=== PATIENT | female | born 1990 | race Hispanic/Latino ===

== ENCOUNTER 2021-07-18 05:12 | Emergency (ER) | payer OTHER ==
--- OUTSIDE RECORDS SUMMARY | 2021-07-18 05:15 | XMS REPORT | Continuity of Care Document ---
:1990 Author Organization [facility] t Address [address] [place] [address] Care Team Providers Name Role Phone Domenico JOSE ANGEL Primary Care Physician Marsha Attending Clinician Unavailable Juan Carlos FRANCE Attending Clinician Unavailable RAMANDEEP LOYOLA Attending Clinician Unavailable Juan Carlos France MD Attending Clinician RODRIGO Attending Clinician Unavailable Doctor Unassigned, Name Attending Clinician Unavailable Salma Freeman Attending Clinician Marsha Admitting Clinician Unavailable Payers Payer Name Policy Type Policy Number Effective Date Expiration Date S ource Problems Condition Condition Condition Status Onset Resolution Last Treating Co mments Source Name Details Category Date Date Treatment Clinician Date Obesity Obesity Disease Active Univers (BMI (BMI 8-15 ity of 30-39.9) 30-39.9) 00:00: [place] 00 Medical Branch Allergies, Adverse Reactions, Alerts Allergy Allergy Status Severity Reaction(s) Onset Inactive Treating Comm ents Source Name Type Date Date Clinician No Known DA Active U [facility] [place] No Known DA Active U NONE NOTED [facility] [place] Lactase Propensi Active Unknown - Univ ers ty to See comments 8-14 ity of adverse 00:00: [place] reaction 00 Medical s Branch LACTASE DRUG Active Unknown-Cmnt Uni vers INGREDI 8-14 ity of 00:00: [place] 00 Medical Branch Social History Social Habit Start Date Stop Date Quantity Comments Source ASSERTION 2020-08-10 [facility] 00:00:00 Medical Branch Exposure to Not sure [facility] SARS-CoV-2 (event) Medica l Branch Tobacco use and 2021-06-15 2021-06-15 Never used [facility] exposure 00:00:00 00:00:00 [facility] Sex Assigned At [birth year] [facility] 00:00:00 00:00:00 Medical Branch Smoking Status Start Date Stop Date Source Never smoker [facility] Medications Ordered Filled Start Stop Current Ordering Indication Dosage Frequency Signature Comments Components Source Medication Medication Date Date Medication? Clinician (SIG) Name Name [facility] 2020-08 Yes Take by Un reginald rol, 08-15 mouth. ity of vitamin D2, 13:08: [place] (VITAMIN D 35 Medical ORAL) Branch vitamin 2020-08 Yes 50ug Take 50 Univers B-12 1-02 mcg by ity of (VITAMIN 13:08: mouth [place] B-12) 100 35 daily. Medical mcg tablet Branch VITAMIN B 2020-08 Yes Take by [facility] ers COMPLEX-100 08-15 mouth. ity of ORAL 13:08: [address] iron,carb/v 2020-08 Yes Take by Un reginald it C/vit 02 mouth. ity of B12/folic 13:08: [place] (IRON 100 35 Medical PLUS ORAL) [facility]-08 Yes Take by Un reginald rol, 08-15 mouth. ity of vitamin D2, 13:08: [place] (VITAMIN D 35 Medical ORAL) Branch vitamin 2020-08 Yes 50ug Take 50 Univers B-12 1-02 mcg by ity of (VITAMIN 13:08: mouth [place] B-12) 100 35 daily. Medical mcg tablet Branch VITAMIN B 2020-08 Yes Take by [facility] ers COMPLEX-100 08-15 mouth. ity of ORAL 13:08: [address] iron,carb/v 2020-08 Yes Take by Un reginald it C/vit 02 mouth. ity of B12/folic 13:08: [place] (IRON 100 35 Medical PLUS ORAL) Branch ergocalcife 2020-08 Yes Take by Un reginald rol, 08-15 mouth. ity of vitamin D2, 13:08: [place] (VITAMIN D 35 Medical ORAL) Branch vitamin 2020-08 Yes 50ug Take 50 Univers B-12 1-02 mcg by ity of (VITAMIN 13:08: mouth [place] B-12) 100 35 daily. Medical mcg tablet Branch VITAMIN B 2020-08 Yes Take by Univ ers COMPLEX-100 08-15 mouth. ity of ORAL 13:08: [place] [address] Medical Branch iron,carb/v 2020-08 Yes Take by Un reginald it C/vit 08-15 mouth. ity of B12/folic 13:08: [place] (IRON 100 35 Medical PLUS ORAL) Branch ergocalcife 2020-08 Yes Take by Un reginald rol, 08-15 mouth. ity of vitamin D2, 13:08: [place] (VITAMIN D 35 Medical ORAL) Branch vitamin 2020-08 Yes 50ug Take 50 Univers B-12 1-02 mcg by ity of (VITAMIN 13:08: mouth [place] B-12) 100 35 daily. Medical mcg tablet Branch VITAMIN B 2020-08 Yes Take by Univ ers COMPLEX-100 08-15 mouth. ity of ORAL 13:08: [place] [address] Medical Branch iron,carb/v 2020-08 Yes Take by Un reginald it C/vit 08-15 mouth. ity of B12/folic 13:08: [place] (IRON 100 35 Medical PLUS ORAL) Branch ergocalcife 2020-08 Yes Take by Un reginald rol, 08-15 mouth. ity of vitamin D2, 13:08: [place] (VITAMIN D 35 Medical ORAL) Branch vitamin 2020-08 Yes 50ug Take 50 Univers B-12 1-02 mcg by ity of (VITAMIN 13:08: mouth [place] B-12) 100 35 daily. Medical mcg tablet Branch VITAMIN B 2020-08 Yes Take by Univ ers COMPLEX-100 08-15 mouth. ity of ORAL 13:08: [place] [address] Medical Branch iron,carb/v 2020-08 Yes Take by Un reginald it C/vit 08-15 mouth. ity of B12/folic 13:08: [place] (IRON 100 35 Medical PLUS ORAL) Branch ergocalcife 2020-08 Yes Take by Un reginald rol, 1-02 mouth. ity of vitamin D2, 13:08: [place] (VITAMIN D 35 Medical ORAL) Branch vitamin 2020-08 Yes 50ug Take 50 Univers B-12 1-02 mcg by ity of (VITAMIN 13:08: mouth [place] B-12) 100 35 daily. Medical mcg tablet Branch VITAMIN B 2020-08 Yes Take by [facility] ers COMPLEX-100 1-02 mouth. ity of ORAL 13:08: [place] 35 Medical Branch iron,carb/v 2020-08 Yes Take by Un reginald it C/vit -02 mouth. ity of B12/folic 13:08: [place] (IRON 100 35 Medical PLUS ORAL) Branch levothyroxi Yes [id number] 50ug Take 1 Univers ne 50 mcg 6-08 tablet by ity o f tablet 00:00: mouth [place] 00 every Medical morning. Branch levothyroxi Yes [id number] 50ug Take 1 Univers ne 50 mcg 6-08 tablet by ity o f tablet 00:00: mouth [place] 00 every Medical morning. Branch levothyroxi Yes [id number] 50ug Take 1 Univers ne 50 mcg 6-08 tablet by ity o f tablet 00:00: mouth [place] 00 every Medical morning. Branch levothyroxi Yes [id number] 50ug Take 1 Univers ne 50 mcg 6-08 tablet by ity o f tablet 00:00: mouth [place] 00 every Medical morning. Branch levothyroxi Yes [id number] 50ug Take 1 Univers ne 50 mcg 6-08 tablet by ity o f tablet 00:00: mouth [place] 00 every Medical morning. Branch levothyroxi Yes [id number] 50ug Take 1 Univers ne 50 mcg 6-08 tablet by ity o f tablet 00:00: mouth [place] 00 every Medical morning. Branch maalox:diph Yes [id number] garggle Univers enhydrAMINE 1-04 and spit ity of :lidocaine 00:00: out 5-10 [place] as 2 % viscous 00 ml every Medi dion 1:1:1 4-6 hrs as Branch needed for sore throat famotidine Yes [id number] 40mg Take 1 Univers 40 mg 1-04 tablet by ity of tablet 00:00: mouth [place] 00 daily. Medical Branch azelastine Yes [id number] 1{spray Use 1 Univers 137 mcg 1-04 } [place] ity of (0.1 %) 00:00: each [place] nasal spray 00 nostril 2 Med ical (two) Branch times daily. Use in each nostril as directed maalox:diph Yes [id number] gar[place] Univers enhydrAMINE 1-04 and spit ity of :lidocaine 00:00: out 5-10 [place] as 2 % viscous 00 ml every Medi dion 1:1:1 4-6 hrs as Branch needed for sore throat famotidine Yes [id number] 40mg Take 1 Univers 40 mg 1-04 tablet by ity of tablet 00:00: mouth [place] 00 daily. Medical Branch azelastine Yes [id number] 1{spray Use 1 Univers 137 mcg 1-04 } [place] ity of (0.1 %) 00:00: each [place] nasal spray 00 nostril 2 Med ical (two) Branch times daily. Use in each nostril as directed maalox:diph Yes [id number] gar[place] Univers enhydrAMINE 1-04 and spit ity of :lidocaine 00:00: out 5-10 [place] as 2 % viscous 00 ml every Medi dion 1:1:1 4-6 hrs as Branch needed for sore throat famotidine 2020- Yes [id number] 40mg Take 1 Univers 40 mg 1-04 tablet by ity of tablet 00:00: mouth [place] 00 daily. Medical Branch azelastine Yes [id number] 1{spray Use 1 Univers 137 mcg 1-04 } [place] ity of (0.1 %) 00:00: each [place] nasal spray 00 nostril 2 Med ical (two) Branch times daily. Use in each nostril as directed maalox:diph Yes [id number] gar[place] Univers enhydrAMINE 1-04 and spit ity of :lidocaine 00:00: out 5-10 [place] as 2 % viscous 00 ml every Medi dion 1:1:1 4-6 hrs as Branch needed for sore throat famotidine 2020-0 Yes [id number] 40mg Take 1 Univers 40 mg 1-04 tablet by ity of tablet 00:00: mouth [place] 00 daily. Medical Branch azelastine Yes [id number] 1{spray Use 1 Univers 137 mcg 1-04 } [place] ity of (0.1 %) 00:00: each [place] nasal spray 00 nostril 2 Med ical (two) Branch times daily. Use in each nostril as directed maalox:diph Yes [id number] gar[place] Univers enhydrAMINE 1-04 and spit ity of :lidocaine 00:00: out 5-10 [place] as 2 % viscous 00 ml every Medi dion 1:1:1 4-6 hrs as Branch needed for sore throat famotidine Yes [id number] 40mg Take 1 Univers 40 mg 1-04 tablet by ity of tablet 00:00: mouth [place] 00 daily. Medical Branch azelastine Yes [id number] 1{spray Use 1 Univers 137 mcg 1-04 } [place] in ity of (0.1 %) 00:00: each [place] nasal spray 00 nostril 2 Med ical (two) Branch times daily. Use in each nostril as directed maalox:diph Yes [id number] garggle Univers enhydrAMINE 1-04 and spit ity of :lidocaine 00:00: out 5-10 [place] as 2 % viscous 00 ml every Medi dion 1:1:1 4-6 hrs as Branch needed for sore throat famotidine Yes [id number] 40mg Take 1 Univers 40 mg 1-04 tablet by ity of tablet 00:00: mouth [place] 00 daily. Medical Branch azelastine Yes [id number] 1{spray Use 1 Univers 137 mcg 1-04 } [place] in ity of (0.1 %) 00:00: each [place] nasal spray 00 nostril 2 Med ical (two) Branch times daily. Use in each nostril as directed Vital Signs Vital Name Observation Time Observation Value Comments Source Systolic blood 2021-06-15 18:01:00 130 mm[Hg] Univer sity of pressure [place] [facility] Diastolic blood 2021-06-15 18:01:00 82 mm[Hg] [facility] Heart rate 2021-06-15 18:01:00 82 /min [facility] Body temperature 2021-06-15 18:01:00 36.94 Toshia Univ ersity of [place] [facility] Body height 2021-06-15 18:01:00 157.5 cm [facility] Body weight 2021-06-15 18:01:00 87.68 kg [facility] BMI 2021-06-15 18:01:00 35.36 kg/m2 [facility] Oxygen saturation in 2021-06-15 18:01:00 100 /min [facility] Arterial blood by [facility] Pulse oximetry Branch Procedures Procedure Date / Time Performed Performing Clinician Sourc e REFERRAL- 2021-07-12 06:01:00 Doctor Unassigned, No Jorge [facility] REQUEST/RESPONSE Name [facility] [id number] 2021-05-05 00:00:00 MONMA.05 [facility] Encounters Start End Encounter Admission Attending Care Care Encounter Source Date/Time Date/Time Type Type Clinicians Facility Department ID 2021-05-05 Inpatient BRIANNA Larson [facility] [id number] [facility] 12:30:00 [facility] [id number] [facility] 2021-05-03 Inpatient BRIANNA Larson [facility] [id number] [facility] 12:00:00 [facility] [id number] [facility] 2021-07-27 2021-07-27 [id number] Univers 14:00:00 14:00:00 NGOZI [id number] ity [facility] 2021-07-23 2021-07-23 Outpatient R MILLA [facility] [id number] Univers 13:30:00 13:30:00 DANNY [id number] ity [facility] 2021-07-15 2021-07-15 [facility] [id number] Univers 00:00:00 00:00:00 Ngozi SurIDx [id number] it y of CANCER 4.2.7.2.686 [facility] - [phone] Med ical MDA 419 Branch 2021-07-14 2021-07-14 Outpatient R [facility] [id number] Univers 20:00:00 20:00:00 [id number] ity [facility] 2021-07-14 2021-07-14 [facility] [id number] Univers 20:00:00 20:00:00 [facility] 2021-07-13 2021-07-13 Telephone [facility] [id number] Univers 00:00:00 00:00:00 Ngozi S [place] [id number] it y of [place] 4[place]2.686 [place] - [phone] Med ical MDA [address] [place] 2021-07-12 2021-07-12 Orders Doctor CAITLIN [id number] Univers 00:00:00 00:00:00 Only Unassigned, ATIF [id number] ity of [place] [facility] 4.2.7.2.686 [place] as [phone] [address] 2021-06-30 2021-06-30 Telephone [facility] [id number] Univers 00:00:00 00:00:00 [facility] [id number] ity [place]2.[place].2.686 [place] - [phone] Med ical MDA 408 Branch 2021-06-15 2021-06-15 Office [facility] [id number] Univers 12:49:29 13:19:29 Visit [place] [id number] ity of [place]2.[place].2.686 [place] - [phone] Med ical MDA 408 Branch 2021-05-05 2021-05-07 Inpatient BRIANNA Larson [facility] OB [id number] [facility] 10:24:00 13:12:00 Danna Woman' s [facility] Results Test Description Test Time Test Comments Results Result Comments Source HGB HCT 2021-05-06 06:02:00 Test Item Value Reference Range Interpretation Comme nts HEMOGLOBIN (test code = HGB) 7.9 g/dL 10.1-13.8 L HEMATOCRIT (test code = HCT) 24.7 % 32.5-41.8 L COVID 19 Asymptomatic IH [id number] 20:34:00 Test Item Value Reference Range Interpretation Comments COVID 19 NEGATIVE NEGATIVE This test has b een Asymptomatic IH AG authorize d only for the (test code = detection ofpro teins from COVNONPUIAG) SARS-CoV-2, not for any other viruses orpathogens. N egative results should be treated as presumptive andconfirmed wi th a molecular assay , if necessary for patientmanageme nt. Negative result s do not rule out COVID- 19 andshould not b e used as the sole basis for treatment orpat ient management deci sions, including infec tion controldecision s. Negative result s should be considered i n thecontext of a patient's recent exposure s, history and thepresence of clinical signs and symptoms consis tent withCOVID-19. T his test has not been FD A cleared or approved; th e test hasbeen authori juan by FDA under an Emerge ncy Use Authorization(E UA) for use by laborato eduardo certified under the CLIA thatmeet the re quirements to perform mode rate, high or waivedcomple xity tests. This gracia t is authorized for use at thePoint of Car e (POC), i.e., in patien t care settingsoperati ng under a CLIA Certificat e of Waiver, Certifi guerda ofCompliance, o r Certificate of Accreditation. This test is only authori zedamián for the duration of thedeclaration that circumstances e xist justifying theauthorizatio n of emergency use o f in vitro diagnostic test sfor detection and/o r diagnosis of CO VID-19 under [id number] 4(b)(1) of the Act, 21 U.S .C. 360bbb-3(b)(1), unless theauthorizatio n is terminated or r evoked sooner. AB HIV 1 19:00:00 Test Item Value Reference Range Interpretation Comments AB HIV 1 2 (test NONREACTIVE NONREACTIVE Done by S [facility] code = NUR62CL) 4th Gen HIV Ag/Ab Combo Screen AG HEPATITIS B [id number] 19:00:00 Test Item Value Reference Range Interpretation Comments AG HEPATITIS B SURFACE (test code NONREACTIVE NONREACTIVE = HBSAG) AB HEPATITIS C [id number] 19:00:00 Test Item Value Reference Range Interpretation Comments AB HEPATITIS C (test code = NONREACTIVE NONREACTIVE HCVAB) SIGNAL TO CUTOFF (test code = 0.04 <0.80 N CUTOFF) AB [id number] 19:00:00 Test Item Value Reference Range Interpretation Comments AB TREPONEMA (test code = TREPAB) NONREACTIVE NONREACTIVE URINALYSIS W/O [id number] 16:32:00 Test Item Value Reference Range Interpretation Comments UA GLUCOSE DIPSTICK (test code = NEGATIVE NEG DGLUU) UA KETONE DIPSTICK (test code = NEGATIVE NEG KETU) UA PROTEIN DIPSTICK (test code = NEGATIVE NEG PROU) IS NURSE PERFORMING TEST? NCBC W/AUTO [id number] 16:08:00 Test Item Value Reference Range Interpretation Comments WHITE BLOOD CELL (test code = WBC) 7.4 K/mm3 6.5-12.3 N RED BLOOD CELL (test code = RBC) 3.59 M/mm3 3.51-4.69 N HEMOGLOBIN (test code = HGB) 9.4 g/dL 10.1-13.8 L HEMATOCRIT (test code = HCT) 29.9 % 32.5-41.8 L MEAN CELL VOLUME (test code = MCV) 83.3 fL 84.6-96.6 L MEAN CELL HGB (test code = MCH) 26.2 pg 27.3-33.9 L MEAN CELL HGB CONCETRATION (test 31.4 gm/dL 32.0-34.2 L code = MCHC) RED CELL DISTRIBUTION WIDTH (test 14.7 % 12.2-16.3 N code = RDW) PLATELET COUNT (test code = PLT) 201 K/mm3 134-363 N MEAN PLATELET VOLUME (test code = 10.8 fL 9.2-12.7 N MPV) NEUTROPHIL % (test code = NT%) 59.2 % 57.9-77.3 N LYMPHOCYTE % (test code = LY%) 29.4 % 14.5-29.7 N MONOCYTE % (test code = MO%) 10.2 % 3.6-10.2 N EOSINOPHIL % (test code = EO%) 0.4 % 0.0-3.0 N BASOPHIL % (test code = BA%) 0.1 % 0.1-0.9 N NEUTROPHIL # (test code = NT#) 4.4 K/mm3 LYMPHOCYTE # (test code = LY#) 2.2 K/mm3 MONOCYTE # (test code = MO#) 0.8 K/mm3 EOSINOPHIL # (test code = EO#) 0.03 K/mm3 BASOPHIL # (test code = BA#) 0.0 K/mm3 RBC MORPHOLOGY REQUIRED (test code NORMAL NORMAL = RBCM) PLATELET MORPHOLOGY REQUIRED (test NORMAL NORMAL code = PLTMR)
--- NOTE | 2021-07-18 07:00 | ER ---
Nurse's Notes [facility] [place] [facility] Name: Fatmata Gomez Age: 31 yrs Sex: Female : 1990 Arrival Date: 07/18/2021 Time: 05:20 Bed DIS6 Private MD: Diagnosis: Dental caries, unspecified Presentation: 07/18 05:46 Chief complaint: Patient states: "So I have an infection on my tooth. I went to [facility] primary. She gave me antibiotics, and pain medications, but it has only gotten worse. I have a dental appointment on Monday, but I cannot deal with the pain. I was hoping to get a different antibiotic". Coronavirus screen: Vaccine status: Patient reports being unvaccinated. Ebola Screen: Patient negative for fever greater than or equal to 101.5 degrees Fahrenheit, and additional compatible Ebola Virus Disease symptoms Patient denies exposure to infectious person. Patient denies travel to an Ebola-affected area in the 21 days before illness onset. Initial Sepsis Screen: Does the patient meet any 2 criteria? HR > 90 bpm. Does the patient have a suspected source of infection? Yes: Other: infected tooth. Risk Assessment: Do you want to hurt yourself or someone else? Patient reports no desire to harm self or others. Onset of symptoms was July 12, 2021. 05:46 Method Of Arrival: Ambulatory tw5 05:46 Acuity: RHONDA 4 tw5 Triage Assessment: 06:03 General: Appears in no apparent distress. uncomfortable, Behavior is calm, cooperative, tw5 appropriate for age. Pain: Pain currently is 10 out of 10 on a pain scale. EENT: Reports pain in lower left second molar and lower left first molar. 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 - Social history:: Smoking status: Patient denies any tobacco usage or history of. Screenin:06 Abuse screen: Denies threats or abuse. Denies injuries from another. Nutritional tw5 screening: No deficits noted. Tuberculosis screening: No symptoms or risk factors identified. Fall Risk No fall in past 12 months (0 pts). Assessment: 06:07 Neuro: Level of Consciousness is awake, alert, obeys commands, Oriented to person, tw5 place, time, situation. Respiratory: Airway is patent Trachea midline Respiratory effort is even, unlabored. Derm: Skin is intact, is healthy with good turgor. Vital Signs: 05:46 Pulse 105; Resp 14; Temp 97.6; Pulse Ox 100% on R/A; Weight 84.82 kg; Height 5 ft. 2 tw5 in. (157.48 cm); Pain 10/10; 05:46 Body Mass Index 34.20 (84.82 kg, 157.48 cm) tw5 ED Course: 05:20 Patient arrived in ED. 05:46 Dorota Cast is Primary Nurse. tw5 05:54 Vidal Sylvester MD is Attending Physician. 7 06:03 Triage completed. tw5 06:03 Arm band placed on right wrist. tw5 06:07 Patient has correct armband on for positive identification. Bed in low position. Call tw5 light in reach. Side rails up X 1. Pulse ox on. NIBP on. Door closed. Moved to private room. Warm blanket given. Verbal reassurance given. 06:58 Abiodun Woods DDS is Referral Physician. 7 07:20 No provider procedures requiring assistance completed. Patient did not have IV access as6 during this emergency room visit. Administered Medications: 07:19 Drug: Tylenol 1000 mg Route: PO; as6 07:19 Follow up: Response: No adverse reaction as6 Outcome: 06:59 Discharge ordered by . 7 07:26 Discharged to home ambulatory. as6 07:26 Condition: stable 07:26 Discharge instructions given to patient, Instructed on discharge instructions, follow up and referral plans. medication usage, Demonstrated understanding of instructions, follow-up care, medications, Prescriptions given X 1. 07:28 Patient left the ED. as6 Signatures: Vidal Sylvester MD MD [facility] Hortencia Lopez Dorota Cast tw5 Barry Chapin RN RN as6 Corrections: (The following items were deleted from the chart) 06:05 06:03 Allergies: No Known Allergies; tw5 tw5
--- NOTE | 2021-07-18 07:00 | EDPHYS ---
Physician Documentation [facility] Name: Fatmata Gomez Age: 31 yrs Sex: Female : 1990 Arrival Date: 07/18/2021 Time: 05:20 Bed DIS6 Private MD: ED Physician Vidal Sylvester HPI: 07/18 06:54 This 31 yrs old Female presents to ER via Ambulatory with complaints of mh7 Toothache. 06:54 The patient presents with pain. The problem is located in the Left lower tooth. Onset: mh7 The symptoms/episode began/occurred 1 week(s) ago. Duration: The symptoms are continuous, and are unchanged since they started. Modifying factors: The symptoms are alleviated by nothing, the symptoms are aggravated by cold fluids. Associated signs and symptoms: Pertinent negatives: anorexia, chills, dysphagia, fever, inability to eat, nausea, redness in area, swelling, vomiting. Severity of symptoms: At their worst the symptoms were moderate, 3 day(s) ago, in the emergency department the symptoms are unchanged. States that she has appointment to see her dentist tomorrow.. 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 - Social history:: Smoking status: Patient denies any tobacco usage or history of. ROS: 06:54 Constitutional: Negative for fever, chills, and weight loss, Eyes: Negative for injury, mh7 pain, redness, and discharge, ENT: Negative for injury, pain, and discharge, Neck: Negative for injury, pain, and swelling, Cardiovascular: Negative for chest pain, palpitations, and edema, Respiratory: Negative for shortness of breath, cough, wheezing, and pleuritic chest pain, Abdomen/GI: Negative for abdominal pain, nausea, vomiting, diarrhea, and constipation, Back: Negative for injury and pain, : Negative for injury, bleeding, discharge, and swelling, MS/Extremity: Negative for injury and deformity, Skin: Negative for injury, rash, and discoloration, Neuro: Negative for headache, weakness, numbness, tingling, and seizure, Psych: Negative for depression, anxiety, suicide ideation, homicidal ideation, and hallucinations, Allergy/Immunology: Negative for hives, rash, and allergies, Endocrine: Negative for neck swelling, polydipsia, polyuria, polyphagia, and marked weight changes, Hematologic/Lymphatic: Negative for swollen nodes, abnormal bleeding, and unusual bruising. Exam: 06:54 Constitutional: This is a well developed, well nourished patient who is awake, alert, mh7 and in no acute distress. Head/Face: Normocephalic, atraumatic. 06:54 Skin: Warm, dry with normal turgor. Normal color with no rashes, no lesions, and no evidence of cellulitis. Neuro: Awake and alert, GCS 15, oriented to person, place, time, and situation. Cranial nerves II-XII grossly intact. Motor strength 5/5 in all extremities. Sensory grossly intact. Cerebellar exam normal. Normal gait. Psych: Awake, alert, with orientation to person, place and time. Behavior, mood, and affect are within normal limits. 06:54 ENT: External ear(s): are unremarkable, Nose: is normal, Mouth: is normal, Posterior pharynx: is normal, airway is patent, Dental exam: abscess, is not appreciated, cellulitis, is not appreciated, dental caries, that is moderate, specifically in the lower left first molar (#19), fractured teeth are noted, not appreciated, gum swelling, not appreciated, malocclusion, is not appreciated, missing teeth, not appreciated, pain, that is moderate, specifically in the lower left first molar (#19), Voice: is normal. Vital Signs: 05:46 Pulse 105; Resp 14; Temp 97.6; Pulse Ox 100% on R/A; Weight 84.82 kg; Height 5 ft. 2 tw5 in. (157.48 cm); Pain 10/10; 05:46 Body Mass Index 34.20 (84.82 kg, 157.48 cm) tw5 MDM: 06:54 Differential diagnosis: dental caries, gingivitis, dental abscess, pericoronitis, mh7 aphthous ulcers, acute necrotizing ulcerative gingivitis, gingivostomatitis. Data reviewed: vital signs, nurses notes. Counseling: I had a detailed discussion with the patient and/or guardian regarding: the historical points, exam findings, and any diagnostic results supporting the discharge/admit diagnosis, the need for outpatient follow up, a dentist. 06:59 Patient medically screened. [facility] Administered Medications: 07:19 Drug: Tylenol 1000 mg Route: PO; as6 07:19 Follow up: Response: No adverse reaction as6 Disposition Summary: 07/18/21 06:59 Discharge Ordered Location: Home [facility] Problem: an ongoing problem [facility] Symptoms: have improved [facility] Condition: Stable [facility] Diagnosis - Dental caries, unspecified [facility] Followup: [facility] - With: Private Physician - When: Tomorrow - Reason: Worsening of condition, Recheck today's complaints, Continuance of care, Re-evaluation by your physician Followup: [facility] - With: Abiodun Woods DDS - When: 1 - 2 days - Reason: Worsening of condition, Recheck today's complaints Discharge Instructions: - Discharge Summary Sheet [facility] - Dental Pain, [id number] [facility] - Dental Caries, Adult, [id number] [facility] Forms: - Medication Reconciliation Form [facility] - Thank You Letter [facility] - Antibiotic Education [facility] - Prescription Opioid Use [facility] Prescriptions: - Clindamycin HCl 300 mg Oral Capsule - take 1 capsule by ORAL route every 6 hours for 7 days; 28 capsule; Refills: 0, 7 Product Selection Permitted Signatures: Samanta Mcdaniels RN RN lp1 Vidal Sylvester MD MD 7 Dorota Cast 5 Barry Chapin RN RN as6 Corrections: (The following items were deleted from the chart) 06:05 06:03 Allergies: No Known Allergies; tw5 tw5
[2021-07-18] MEDS ORDERED: ACETAMINOPHEN 500 MG TAB ONE (07:18)
[2021-07-18] MEDS ORDERED: LIDOCAINE VISCOUS 2% SOLN 15 ML UDC ONE (07:19)
[2021-07-18 07:33] VITALS: TEMP 97.6; O2SAT 100
== END 2021-07-18 07:28 | disposition home or self-care (01) ==
LOC: ER 05:12
DX: K02.9 Dental caries, unspecified (principal)
CPT/HCPCS: 99283

== ENCOUNTER 2022-02-23 18:48 | Emergency (ER) | payer OTHER ==
--- NOTE | 2022-02-23 20:20 | RAD REPORT ---
EXAM DESCRIPTION: RAD - Chest Single View - 02/23/2022 7:57 pm CLINICAL HISTORY: CHEST PAIN COMPARISON: None TECHNIQUE: AP portable chest image was obtained 02/23/2022 7:57 pm . FINDINGS: Lung volumes are low accentuating the baseline interstitial pattern. No focal consolidatio n. Stranding is slightly more pronounced in the left base. This could be atelectasis or minimal infil trate. Heart and vasculature are normal. No measurable pleural effusion and no pneumothorax. No acute bony abnormality seen. No acute aortic findings suspected. IMPRESSION: Left base stranding is probably atelectasis on this low lung volume exam. Mild left base infiltrate cannot be excluded.
[2022-02-23 20:31] LABS: Absolute Lymphocytes (CBC) 0.3 K/uL (0.7-4.9); Hematocrit 39.5 % (36.0-45.0); Lymphocytes % 2.5 % (15.3-44.8); MCV 81.7 fL (80-100); MPV 7.9 fL (7.6-11.3); RBC Red Blood Cell Count 4.83 M/uL (3.86-4.86)
[2022-02-23 20:37] LABS: BUN Blood Urea Nitrogen 11 mg/dL (7-18); Bicarbonate 24 mmol/L (21-32); Glomerular Filtration Rate 103 ml/min (=/>90); Glucose Level 108 mg/dL (74-106); Potassium 4.4 mmol/L (3.5-5.1); Sodium Level 138 mmol/L (136-145)
[2022-02-23] MEDS ORDERED: ONDANSETRON 4 MG/2 ML VIAL ONE (20:43)
[2022-02-23] MEDS ORDERED: MORPHINE 4 MG/ML SYR ONE (20:43)
[2022-02-23 21:02] LABS: Troponin High Sensitivity < 3.0 pg/mL (<58.9)
[2022-02-23 21:45] LABS: Blood Morphology Comment NOT SEEN (NOT SEEN); Platelet Estimate ADEQ
--- NOTE | 2022-02-24 00:44 | ER ---
Nurse's Notes [facility] Name: Fatmata Gomez Age: 31 yrs Sex: Female : 1990 Arrival Date: 02/23/2022 Time: 18:49 Bed 8 Private MD: Diagnosis: SARS-associated coronavirus as the cause of diseases classified elsewhere;Chest pain, unspecified Presentation: 02/23 19:39 Chief complaint: Patient states: "I went and had a shot today at around 12 for pain in vc1 my back and about an hour later I started feeling burning in my chest and short of breath. I called the and they told me to try and lay down but it has been 3 hours and its not helping. I feel like my lung hurts or is flapping on the left when I bend down.". Coronavirus screen: Vaccine status: Patient reports being unvaccinated. At this time, the client does not indicate any symptoms associated with coronavirus-19. Ebola Screen: No symptoms or risks identified at this time. Initial Sepsis Screen: Does the patient meet any 2 criteria? HR > 90 bpm. No. Patient's initial sepsis screen is negative. Does the patient have a suspected source of infection? No. Patient's initial sepsis screen is negative. Risk Assessment: Do you want to hurt yourself or someone else? Patient reports no desire to harm self or others. Onset of symptoms was February 23, 2022 at 13:00. 19:39 Method Of Arrival: Wheelchair vc1 19:39 Acuity: RHONDA 3 vc1 Triage Assessment: 19:42 General: Appears in no apparent distress. uncomfortable, Behavior is cooperative, vc1 appropriate for age, anxious. Pain: Complains of pain in anterior aspect of left upper chest and mid-sternal area Pain currently is 10 out of 10 on a pain scale. Neuro: Level of Consciousness is awake, alert, obeys commands, Oriented to person, place, time, situation, Appropriate for age. Cardiovascular: Capillary refill < 3 seconds Patient's skin is warm and dry. Cardiovascular: Reports chest pain. Respiratory: Airway is patent Respiratory effort is even, unlabored, Respiratory pattern is regular, symmetrical. GI: No deficits noted. : No deficits noted. Derm: No signs and/or symptoms reported regarding the dermatologic system. Musculoskeletal: No deficits noted. 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 - Social history:: Smoking status: Patient denies any tobacco usage or history of. Screenin:45 Abuse screen: Denies threats or abuse. Nutritional screening: No deficits noted. vc1 Tuberculosis screening: No symptoms or risk factors identified. Fall Risk None identified. Assessment: 20:52 General: Appears in no apparent distress. comfortable, Behavior is calm, cooperative, ld1 appropriate for age. Pain: Complains of pain in chest Pain does not radiate. Pain currently is 8 out of 10 on a pain scale. Quality of pain is described as throbbing, Pain began gradually. Neuro: Level of Consciousness is awake, alert, obeys commands, Oriented to person, place, time, situation. Cardiovascular: Capillary refill < 3 seconds Patient's skin is warm and dry. Respiratory: Airway is patent Respiratory effort is even, unlabored. GI: Abdomen is flat, non-distended. : No signs and/or symptoms were reported regarding the genitourinary system. EENT: No signs and/or symptoms were reported regarding the EENT system. Derm: No signs and/or symptoms reported regarding the dermatologic system. Musculoskeletal: No signs and/or symptoms reported regarding the musculoskeletal system. 22:26 Reassessment: Patient appears in no apparent distress at this time. Patient and/or ld1 family updated on plan of care and expected duration. Pain level reassessed. Patient is alert, oriented x 3, equal unlabored respirations, skin warm/dry/pink. Vital Signs: 19:39 BP 152 / 101; Pulse 91; Resp 20; Temp 98.0; Pulse Ox 99% ; Weight 78.02 kg; Height 5 vc1 ft. 2 in. (157.48 cm); Pain 10/10; 20:52 BP 130 / 101; Pulse 99; Resp 18; Pulse Ox 100% on R/A; ld1 21:46 BP 146 / 96; Pulse 80; Resp 18; Pulse Ox 100% on R/A; ld1 22:26 BP 129 / 89; Pulse 95; Resp 18; Pulse Ox 100% on R/A; ld1 23:21 BP 110 / 91; Pulse 91; Resp 18; Pulse Ox 100% on R/A; ld1 02/24 00:57 BP 110 / 83; Pulse 86; Resp 18 S; Pulse Ox 100% on R/A; as6 02/23 19:39 Body Mass Index 31.46 (78.02 kg, 157.48 cm) vc1 ED Course: 02/23 18:49 Patient arrived in ED. as 19:08 Driss Mcneil DO is Attending Physician. ms3 19:42 Triage completed. vc1 19:44 Arm band placed on right wrist. vc1 19:45 Patient has correct armband on for positive identification. vc1 19:58 XRAY Chest (1 view) In Process Unspecified. EDMS 20:10 Inserted saline lock: 20 gauge in right antecubital area, using aseptic technique. zm Blood collected. 20:11 Basic Metabolic Panel Sent. zm 20:11 CBC with Diff Sent. zm 20:11 D-Dimer Sent. zm 20:11 Troponin HS Sent. zm 20:28 Barry Chapin, RN is Primary Nurse. as6 20:52 color television console monitor on. Pulse ox on. NIBP on. Door closed. Noise minimized. Warm blanket ld1 given. 20:52 No provider procedures requiring assistance completed. Patient maintains SpO2 ld1 saturation greater than 95% on room air. 02/24 00:43 Gaudencio Bailey DO is Referral Physician. ms3 00:56 IV discontinued, intact, bleeding controlled, No redness/swelling at site. Pressure as6 dressing applied. Administered Medications: 02/23 20:41 Drug: morphine 4 mg Route: IVP; Infused Over: 4 mins; Site: right antecubital; ld1 02/24 00:56 Follow up: Response: No adverse reaction as6 02/23 20:41 Drug: Zofran (Ondansetron) 4 mg Route: IVP; Site: right antecubital; ld1 02/24 00:56 Follow up: Response: No adverse reaction as6 Medication: 02/23 20:52 VIS not applicable for this client. ld1 Outcome: 02/24 00:43 Discharge ordered by . ms3 00:56 Discharged to home ambulatory. as6 00:56 Condition: stable 00:56 Discharge instructions given to patient, Instructed on discharge instructions, follow up and referral plans. medication usage, Demonstrated understanding of instructions, follow-up care, medications, Prescriptions given X 1. 00:57 Patient left the ED. as6 Signatures: Dispatcher [employer] EDMS Leann Gamez Marcus, DO DO ms3 Rachael Paredes RN RN ld1 Barry Chapin RN RN as6 Fany Lester RN RN vc1 Dejah Gamez Corrections: (The following items were deleted from the chart) 02/23 19:43 19:42 Allergies: Naproxen; vc1 vc1
--- NOTE | 2022-02-24 00:44 | EDPHYS ---
Physician Documentation [facility] Name: Fatmata Gomez Age: 31 yrs Sex: Female : 1990 Arrival Date: 02/23/2022 Time: 18:49 Bed 8 Private MD: ED Physician Driss Mcneil HPI: 02/23 19:57 This 31 yrs old Female presents to ER via Wheelchair with complaints of Chest ms3 Tightness, Irregular Pulse. 19:57 The patient or guardian reports chest pain that is located primarily in the left chest. ms3 The pain does not radiate. Associated signs and symptoms: Pertinent positives: shortness of breath. The chest pain is described as sharp. Duration: The patient or guardian reports a single episode, that is still ongoing. Modifying factors: The symptoms are alleviated by nothing. the symptoms are aggravated by nothing. Severity of pain: At its worst the pain was severe in the emergency department the pain is unchanged is a 10 / 10. 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 - Social history:: Smoking status: Patient denies any tobacco usage or history of. ROS: 19:57 Constitutional: Negative for fever, and chills. Neck: Negative for injury, pain, and ms3 swelling, Respiratory: Negative for shortness of breath, cough, wheezing, and pleuritic chest pain, Abdomen/GI: Negative for abdominal pain, nausea, vomiting, diarrhea, and constipation, MS/Extremity: Negative for injury and deformity, Skin: Negative for injury, rash, and discoloration, Neuro: Negative for headache, weakness, numbness, tingling. 19:57 Cardiovascular: Positive for chest pain. Exam: 19:57 Constitutional: This is a well developed, well nourished patient who is awake, alert, ms3 and in no acute distress. ENT: Nares patent. No nasal discharge, no septal abnormalities noted. Tympanic membranes are normal and external auditory canals are clear. Oropharynx with no redness, swelling, or masses, exudates, or evidence of obstruction, uvula midline. Mucous membranes moist. Neck: Trachea midline, no cervical lymphadenopathy. Supple, full range of motion without nuchal rigidity, or vertebral point tenderness. No Meningismus. Chest/axilla: Normal chest wall appearance and motion. Nontender with no deformity. Cardiovascular: Regular rate and rhythm with a normal S1 and S2. No gallops, murmurs, or rubs. Normal PMI, no JVD. No pulse deficits. Respiratory: Lungs have equal breath sounds bilaterally, clear to auscultation and percussion. No rales, rhonchi or wheezes noted. No increased work of breathing, no retractions or nasal flaring. Abdomen/GI: Soft, non-tender, with normal bowel sounds. No distension or tympany. No guarding or rebound. No evidence of tenderness throughout. Back: No spinal tenderness. No costovertebral tenderness. Full range of motion. Skin: Warm, dry with normal turgor. Normal color with no rashes, no lesions, and no evidence of cellulitis. MS/ Extremity: Pulses equal, no cyanosis. Neurovascular intact. Full, normal range of motion. Neuro: Awake and alert, GCS 15, oriented to person, place, time, and situation. Cranial nerves II-XII grossly intact. Motor strength 5/5 in all extremities. Sensory grossly intact. Cerebellar exam normal. Normal gait. Psych: Awake, alert, with orientation to person, place and time. Behavior, mood, and affect are within normal limits. 20:06 ECG was reviewed by the Attending Physician. ms3 Vital Signs: 19:39 BP 152 / 101; Pulse 91; Resp 20; Temp 98.0; Pulse Ox 99% ; Weight 78.02 kg; Height 5 vc1 ft. 2 in. (157.48 cm); Pain 10/10; 20:52 BP 130 / 101; Pulse 99; Resp 18; Pulse Ox 100% on R/A; ld1 21:46 BP 146 / 96; Pulse 80; Resp 18; Pulse Ox 100% on R/A; ld1 22:26 BP 129 / 89; Pulse 95; Resp 18; Pulse Ox 100% on R/A; ld1 23:21 BP 110 / 91; Pulse 91; Resp 18; Pulse Ox 100% on R/A; ld1 02/24 00:57 BP 110 / 83; Pulse 86; Resp 18 S; Pulse Ox 100% on R/A; as6 02/23 19:39 Body Mass Index 31.46 (78.02 kg, 157.48 cm) vc1 MDM: 02/23 19:57 Differential diagnosis: abnormal EKG, acute myocardial infarction, chest wall pain. ms3 20:04 Patient medically screened. ms02/23 19:24 Order name: Basic Metabolic Panel; Complete Time: 21:48 ms3 02/23 19:24 Order name: CBC with Diff; Complete Time: 21:48 02/23 19:24 Order name: D-Dimer; Complete Time: 21:48 02/23 19:24 Order name: Troponin HS; Complete Time: 21:48 02/23 20:34 Order name: Manual Differential; Complete Time: 21:48 EDMS 02/23 21:56 Order name: SARS-COV-2 RT PCR (Document "Date of Onset" if Symptomatic); Complete Time: ms3 00:46 02/23 19:24 Order name: XRAY Chest (1 view); Complete Time: 20:22 02/23 19:24 Order name: EKG; Complete Time: 19:25 02/23 19:24 Order name: Cardiac monitoring; Complete Time: 20:34 02/23 19:24 Order name: EKG - Nurse/Tech; Complete Time: 20:10 02/23 19:24 Order name: IV Saline Lock; Complete Time: 20:10 02/23 19:24 Order name: Labs collected and sent; Complete Time: 20:10 02/23 19:24 Order name: O2 Per Protocol; Complete Time: 20:34 02/23 19:24 Order name: O2 Sat Monitoring; Complete Time: 20:34 ms3 EC:06 Rate is 102 beats/min. Rhythm is regular. QRS [place] is Normal. Clinical impression: ms3 Sinus tachycardia. Interpreted by me. Reviewed by me. Administered Medications: 20:41 Drug: morphine 4 mg Route: IVP; Infused Over: 4 mins; Site: right antecubital; 02/24 00:56 Follow up: Response: No adverse reaction 02/23 20:41 Drug: Zofran (Ondansetron) 4 mg Route: IVP; Site: right antecubital; ld1 02/24 00:56 Follow up: Response: No adverse reaction as6 Disposition Summary: 02/24/22 00:43 Discharge Ordered Location: Home ms3 Condition: Stable ms3 Diagnosis - SARS-associated coronavirus as the cause of diseases classified elsewhere ms3 - Chest pain, unspecified ms3 Followup: ms3 - With: Gaudencio Bailey DO - When: 2 - 3 days - Reason: Recheck today's complaints Discharge Instructions: - Discharge Summary Sheet ms3 - Nonspecific Chest Pain, Adult ms3 - COVID-19 ms3 - 10 Things You Can Do to Manage Your COVID-19 Symptoms at Home - [facility] ms3 - Viral Illness, Adult ms3 Forms: - Medication Reconciliation Form ms3 - Thank You Letter ms3 - Antibiotic Education ms3 - Prescription Opioid Use ms3 Prescriptions: - Ibuprofen 600 mg Oral Tablet - take 1 tablet by ORAL route every 6 hours As needed take with food; 30 tablet; ms3 Refills: 0, Product Selection Permitted Signatures: Dispatcher [employer] EDMS Driss Mcneil DO DO ms3 Rachael Paredes RN RN ld1 Fany Lester RN RN vc1 Barry Chapin RN as6 Corrections: (The following items were deleted from the chart) 02/23 19:43 19:42 Allergies: Naproxen; vc1 vc1
[2022-02-24 01:19] VITALS: TEMP 98
[2022-02-24 01:21] VITALS: O2SAT 100
[2022-02-24 01:27] VITALS: BP 110/83
--- NOTE | 2022-02-24 13:05 | EKG ---
Test Date: 2022-02-23 Test Time: 20:06:55 Record Producer: HILDA MEASUREMENT RESULTS: Intervals: Rate: 102 OK: 138 QRSD: 66 QT: 328 QTc: 427 [place]: P: 51 OK: 138 QRS: 62 T: 13 INTERPRETIVE STATEMENTS: Sinus tachycardia with occasional premature ventricular complexes Otherwise normal ECG No previous ECG available for comparison Electronically Signed On 02-24-22 13:04:09 CDT by Choco Byers
== END 2022-02-24 00:57 | disposition home or self-care (01) ==
LOC: ER 18:48
DX: U07.1 COVID-19 (principal); Z88.8 Allergy status to other drugs, medicaments and biological substances
CPT/HCPCS: 93005; 85025; 80048; 36415; 85379; 84484; 71045; 96375; 96374; 99285; U0003; J2405